=== PATIENT | female | born 1980 | race African-American/Black ===

== ENCOUNTER 2023-05-20 04:46 | Day surgery (SDC) | payer OTHER ==
[2023-05-19 09:48] VITALS: BMI 26.6
[2023-05-20 11:02] VITALS: TEMP 97.3
[2023-05-20 11:13] VITALS: PULSE 67
[2023-05-20 11:31] VITALS: BP 106/60; RESP 14
== END 2023-05-20 11:45 | disposition home or self-care (01) ==
LOC: JASU-ENDO 04:46
PROVIDERS: ATTEND Internal Medicine Gastroenterology
PROC: 0DJD8ZZ Inspection of Lower Intestinal Tract, Via Natural or Artificial Opening Endoscopic (ICD-10-PCS; principal; 2023-05-20 10:15)
DX: Z12.11 Encounter for screening for malignant neoplasm of colon (principal); K59.89 Other specified functional intestinal disorders; K64.8 Other hemorrhoids; Z85.038 Personal history of other malignant neoplasm of large intestine